=== PATIENT | female | born 1975 | race Caucasian/White ===

== ENCOUNTER 2017-09-24 13:00 | Outpatient (RCR) | payer BC | END 2017-09-25 | LOC: PT 13:00 | PROVIDERS: ATTEND Specialist | DX: M22.2X1 Patellofemoral disorders, right knee (principal); M25.561 Pain in right knee; M25.661 Stiffness of right knee, not elsewhere classified; M62.81 Muscle weakness (generalized) ==

== ENCOUNTER 2017-10-15 13:00 | Outpatient (RCR) | payer BC | END 2017-10-25 | LOC: PT 13:00 | PROVIDERS: ATTEND Specialist | DX: M22.2X1 Patellofemoral disorders, right knee (principal); M62.81 Muscle weakness (generalized); M25.561 Pain in right knee; M25.661 Stiffness of right knee, not elsewhere classified | CPT/HCPCS: 97139 ==

== ENCOUNTER 2019-02-10 12:55 | Outpatient (RCR) | payer BC | END 2019-02-25 | LOC: PT 12:55 | PROVIDERS: ATTEND Specialist | DX: S13.4XXD Sprain of ligaments of cervical spine, subsequent encounter (principal); M62.81 Muscle weakness (generalized); M53.82 Other specified dorsopathies, cervical region ==

== ENCOUNTER 2019-03-04 12:56 | Outpatient (RCR) | payer BC | END 2019-03-27 | LOC: PT 12:56 | PROVIDERS: ATTEND Specialist | DX: S13.4XXD Sprain of ligaments of cervical spine, subsequent encounter (principal); M62.81 Muscle weakness (generalized); M53.82 Other specified dorsopathies, cervical region | CPT/HCPCS: 97139 ==